=== PATIENT | male | born 1985 | race Two or more races ===

== ENCOUNTER 2023-08-08 22:42 | Emergency (ER) | payer OTHER, SELFPAY ==
[2023-08-08 22:48] VITALS: BP 121/90; BMI 23.8
[2023-08-08 23:40] VITALS: BP 127/80
[2023-08-09 00:01] VITALS: BP 108/81
--- NOTE | 2023-08-09 00:40 | ED.MUSCINJ ---
HPI-Injury
General
Chief Complaint: Extremity Pain (non-traumatic)
Source: patient
Exam Limitations: none
Time Seen by Provider: 08/08/23 23:50
Nursing documentation reviewed up to this point in time: agreed with
History of Present Illness-Injury
Initial Injury comments:
This a pleasant 37-year-old male that presents with left foot pain. He states that he was watching a cricket match when they scored a wicket. He jumped up and landed on his daughter's toy car. He has medial great toe pain. Denies head injury or
loss of consciousness
Review of Systems
Review of Systems
Allergies reviewed?: Yes
Other source history: family
All Other Systems: ROS reviewed and negative except as documented in HPI and ROS
Constitutional: Reports no symptoms
EENT: Reports no symptoms
Respiratory: Reports no symptoms
Cardiac: Reports no symptoms
ABD/GI: Reports no symptoms
: Reports no symptoms
Musculoskeletal: Reports joint pain
Skin: Reports no symptoms
Neurological: Reports no symptoms
Endocrine: Reports no symptoms
Hematologic/Lymphatic: Reports no symptoms
Psychiatric: Reports anxiety
Phy Exam
General Physical Exam
General Presentation: well appearing and mild distress
General age: appears stated age
General Skin: warm and dry
General Mental: alert
Cardiovascular Exam
Cardiovascular Exam: regular rate/rhythm and no edema
Pulmonary Exam
Pulmonary Exam: no respiratory distress and no cough
Neurological Exam
Neurological Exam: alert and oriented x3
Musculoskeletal Exam
Musculoskeletal Exam: full ROM, neuro vasc intact and other (Joint pain left medial great toe)
Skin Exam
Skin Exam: normal color and warm/dry
Psychiatric Exam
Psychiatric Exam: normal mood/affect
Injury Course
Orders/Labs/Results
Orders:
Orders
08/08/23 22:50
Foot, Left 3 View [CR Foot - Left Min 3 Views] Urgent
Comment:
Reason For Exam: pain
08/09/23 00:42
Ibuprofen [Motrin] 600 mg PO NOW STA
*Radiology
Radiology exam reviewed: all reviewed NAD by ED Provider
*Pulse Oximetry
Patient hypoxic: no
*Critical Care Note
Total Time (30-74mins, 75-104mins- exclusive of procedures): Not Applicable
ED Attending Note
-
Portions of this chart may have been created with voice recognition software.� Occasional wrong word or��sound alike� substitutions may have occurred due to the inherent limitations of voice recognition software.
Discharge Plan
Departure
Patient Disposition: Home (Routine Discharge)
Date of Disposition: 08/09/23
Time of Disposition: 00:43
Patient with high blood pressure during this ER visit?: Yes
Condition: Good
Discharge Problem:
Contusion of foot
Instructions: Muscle and Bone Pain (DC), BLOOD PRESSURE
Prescriptions:
New
diclofenac sodium 75 mg tablet,delayed release (DR/EC)
75 mg PO BID Qty: 10 0RF
Referrals:
Yuli Nolasco I., DO [Active] -
NONE,* [Family Provider] -
Activity Restrictions/Additional Instructions:
Please wear the walking boot until cleared by your family doctor or orthopedics.
It was a pleasure meeting you and taking part in your care. We hope for your continued healing and wellness.
Please read discharge instructions in their entirety. However, they are for general education and may not describe your exact diagnosis at discharge. Information on your ER visit and medical conditions were discussed with you along with appropriate
follow up information...
If indicated, please take your medications as instructed and indicated on discharge paperwork.
Please schedule a follow up appointment as directed. Call to schedule an appointment
Please return to the emergency department with ANY change in, persisting, or worsening of symptoms. If any of your symptoms do not improve, or persist, or become more severe within 6-12 hours, please return to the emergency department for further
care.
Please return to the emergency department if you develop a headache, neck pain/stiffness, fever greater than 100.4F, chest pain, shortness of breath, persistent nausea, vomiting, slurred speech, difficulty walking, numbness/tingling, weakness, signs
of infection or any other symptoms that are worrisome to you.
If you have any questions or concerns please do not hesitate to call the Hospital at or E-mail me directly at [email or web address]
Interventions
Interventions:
*Risk Screen - Suicide Last Done: 08/08/23 22:48
*General Assessment Last Done: 08/08/23 23:41
*Neglect/Abuse Screening Last Done: 08/08/23 22:48
ED- Fall Risk Assessment Last Done: 08/08/23 23:41
*Nursing Disposition Last Done: 08/09/23 00:51
ED-Skin Assessment Last Done: 08/08/23 23:41
ED-Musculoskeletal Assessment Last Done: 08/08/23 23:41
Discharge Date and Time
Discharge Date/Time: 08/09/23 00:57
Print Language: MACEDONIAN
[2023-08-09] MEDS: MOTRIN 600 MG PO (00:46)
== END 2023-08-09 00:57 | disposition home or self-care (01) ==
LOC: EMR 22:42
PROVIDERS: EMERGENCY PHYSICIAN Student in an Organized Health Care Education/Training Program
DX: S90.32XA Contusion of left foot, initial encounter (principal); X50.1XXA Overexertion from prolonged static or awkward postures, initial encounter
CPT/HCPCS: 99283; 73630